=== PATIENT | female | born 1975 | race Caucasian/White ===

== ENCOUNTER 2017-05-09 08:41 | Emergency (ER) | payer OTHER ==
--- NOTE | 2017-05-09 12:20 | DIAGNOSTIC IMAGING REPORT ---
PROCEDURE: CT ABDOMEN/PELVIS W/O CONTRAST INDICATION: ABDOMINAL PAIN TECHNIQUE: Noncontrast axial images were obtained of the entire abdomen and pelvis with sagittal and coronal reformations. COMPARISON: Pelvic ultrasound 02/21/2016 FINDINGS: ABDOMEN: Lung base are clear. Normal heart size. Liver, gallbladder, pancreas, spleen and adrenal glands are normal. Bilateral perinephric edema with urinary calculi or hydronephrosis. Nonspecific bowel gas pattern. Normal abdominal aorta. PELVIS: Normal appendix. 2.5 cm left ovarian cyst. Uterus and bladder are normal. No mass or free fluid. No suspicious osseous lesions. IMPRESSION: 1. Bilateral perinephric edema. Consider pyelonephritis 2. 2.5 cm left ovarian cyst 3. Results discussed with Dr. Ortez All CT scans at this facility use dose modulation, iterative reconstruction, and/or weight-based dosing when appropriate to reduce radiation dose to as low as reasonably achievable.
--- NOTE | 2017-05-09 12:27 | ED ORDER SUMMARY ---
..... Patient: ELIA LONGORIA OrderSheet [facility] VisitID: [id number] [place] [address] 42y, F Registration Date/Time: 05/09/2017 ORDER SHEET Weight: 90.7 kg (stated) Allergies: No Known Drug Allergy GENERAL ORDERS: CBC w Diff Urgent (08:54 05/09/2017 MWinterer R.N. per protocol) (8:55 KWilliams R.N.) CMP Urgent (08:54 05/09/2017 MWinterer R.N. per protocol) (8:55 KWilliams R.N.) UA-Culture if indicated Urgent (08:54 05/09/2017 MWinterer R.N. per protocol) (8:55 KWilliams R.N.) Lipase Urgent (08:54 05/09/2017 MWinterer R.N. per protocol) (8:55 KWilliams R.N.) Urine Urgent (08:54 05/09/2017 MWinterer R.N. per protocol) (8:55 KWilliams R.N.) Amylase Urgent (08:55 05/09/2017 MWinterer R.N. per protocol) (8:55 KWilliams R.N.) CT Abd/Pel w Cont (No) (N/A) Urgent (09:16 05/09/2017 Israel Vargas) (Ack 9:24 Donny) (Cancelled: Duplicate Order9:56 Israel Vargas) CT Abd/Pel wo Cont Urgent (09:57 05/09/2017 Israel Vargas) (Ack 10:04 Donny) (11:28 OHefrem) MEDICATION ORDERS: Phenergan IV 25 mg (HIGH ALERT MEDICATION, NOW) (10:38 05/09/2017 Israel Vargas) (Ack 10:41 MWinterer R.N.) (10:49 MWinterer R.N.) IV FLUIDS: IV Saline Lock (08:54 05/09/2017 MWinterer R.N. per protocol) (8:54 MWinterer R.N.) Dilaudid IV 1 mg (HIGH ALERT MEDICATION, NOW) (09:16 05/09/2017 Israel Vargas) (Ack 9:21 MWinterer R.N.) (9:28 MWinterer R.N.) IV NS : initial bolus 1000 mL (1000 mL/hr), then none - for X1 (NOW) (09:57 05/09/2017 Israel Vargas) (Ack 9:58 MWinterer R.N.) (10:08 MWinterer R.N.) Ceftriaxone IV 1 gm/50mL (NOW) (10:03 05/09/2017 Israel Vargas) (10:09 MWinterer R.N.) ORDER SHEET NOTES: [Electronically signed by Frannie Magallanes R.N. (14:05 05/09/2017)] [Electronically signed by Peter Ortez Dr. (16:45 05/09/2017)] [Electronically locked/signed by Frannie Magallanes R.N. (14:05 05/09/2017)]
--- NOTE | 2017-05-09 12:27 | ED NURSING NOTES ---
Clinical Report - Nurses [facility] [place] [address] 05/09/2017 8:42 Patient: ELIA LONGORIA TRIAGE Acuity: LEVEL 3. Chief Complaint: ABDOMINAL PAIN. Alert. No acute distress. SEPSIS SCREEN: Sepsis Screen. Negative (no infection suspected/documented). --08:52 Frannie Magallanes R.N. 08:44 05/09/17. BP: 144/95. HR: 81. RR: 20. O2 saturation: 99%. Temp: 97.2 F (oral). Pain level now: 07/18. --08:52 Frannie Magallanes R.N. Weight: 90.7 kg stated. Height/Length: 69 inches Per Patient. BMI: 29.5. --08:48 Frannie Magallanes R.N. Medications Cipro Oral. --08:49 Frannie Magallanes R.N. Medication/allergy information source: the patient. --08:52 Frannie Magallanes R.N. Allergies No Known Drug Allergy. --08:49 Frannie Magallanes R.N. History Arrived by private vehicle. Historian: patient. Accompanied by spouse. Primary physician ([place]). This started yesterday. Describes the quality as "pain". Relates location as generalized across abdomen. ( Pt states she is prone to UTIs and yesterday she diagnosed herself with a UTI and took cipro that she has prescribed to her. This am she awoke with abdominal pain.). Reports last BM was this am. No nausea, vomiting, diarrhea or constipation. Last oral intake by patient was this morning. It is described as radiating to the low back. Treatment TRADE SHOW SPECIALIST: None. PAST MEDICAL HX: Last normal menstrual period was 2 weeks ago- partner had vasectomy. Sexual history - sexually active. Sexual partner has had a vasectomy. SOCIAL HX: Current every day light tobacco smoker (cigarette)- less than 1/2 a pack per day. Occasional alcohol use. No drug use. FALL RISK ASSESSMENT: Fall risk assessment completed. No fall risk identified. NUTRITIONAL RISK ASSESSMENT: The nutritional risk assessment revealed no deficiencies. FUNCTIONAL ASSESSMENT: Functional assessment: no impairments noted. LEARNING NEEDS ASSESSMENT: The learning needs assessment revealed no barriers. SKIN INTEGRITY ASSESSMENT: Skin integrity risk assessment completed. No skin integrity risk identified. --08:52 Frannie Magallanes R.N. ADDITIONAL SURGERIES: . --08:50 Frannie Magallanes R.N. Assessment GENERAL / NEURO / PSYCH: Alert. Oriented X 4. Appears in no acute distress. Ilya Coma Scale: 15- eyes open spontaneously (4); best verbal response- oriented x 4 (5); best motor response- obeys commands (6). Patient appears calm and cooperative. RESPIRATORY: Respirations not labored. CVS: Capillary refill less than 2 seconds. GI / : Abdomen soft. SKIN: Mucous membranes are pink. Skin is warm and dry. --08:52 Frannie Magallanes R.N. Interventions ID band on patient. To treatment room. Ambulatory. --08:52 Frannie Magallanes R.N. NURSING PROGRESS NOTES 08:53 05/09/2017 Site #1 started via IV in the left hand with an 18g angiocath, with aseptic technique and good blood return; one attempt. Blood drawn: rainbow set. Labeled in the presence of the patient and sent to the lab. Saline lock flushed with 10 mL saline. --08:53 Frannie Magallanes R.N. 08:53 05/09/17. Patient gowned. Head of bed elevated. Reassurance given. Two patient identifiers checked. Call light placed in reach. Side rails up x 1. Bed placed in lowest position. Brakes of bed on. Patient ready for evaluation- chart flagged and ED physician notified. --08:53 Frannie Magallanes R.N. 08:53 05/09/17. Checked patient name and birthdate: patient confirmed. Instructions provided to collect clean catch urine and patient verbalized understanding. Clean catch urine collected with return of yellow-colored cloudy urine; sample sent to lab for urinalysis. Specimen labeled in the presence of the patient. --08:54 Frannie Magallanes R.N. 09:28 05/09/2017 Dilaudid (HYDROmorphone HCl PF) IVP 1 mg given over 1 minute(s) via site #1. Allergies verified, confirmed 5 rights and sedative warning given to the patient. IV patency established. IV site checked: no pain, redness, or swelling. IV flushed thoroughly pre- and post-medication administration. IVP given by RN. --09:28 Frannie Magallanes R.N. 09:29 05/09/17. Pulse oximeter placed on patient; monitor alarms on. --09:29 Frannie Magallanes R.N. 09:55 05/09/17. Reassessment after medication administered. She reports no complaints, she is calm and resting quietly and she has had no adverse reaction. Overall patient status is improved- she states feels better. GI / : Denies abdominal pain. --09:55 Frannie Magallanes R.N. 10:08 05/09/2017 Started bag #1 1000 mL IV Fluids IV NS (Saline); at 1000 mL/hr over 1 hour(s) via site #1. Allergies verified and confirmed 5 rights. IV patency established. IV site checked: no pain, redness, or swelling. IV flushed thoroughly pre- and post-medication administration. --10:09 Frannie Magallanes R.N. 10:09 05/09/2017 Started 1 gm of Ceftriaxone IVPB in bag #1 50 mL; at 150 mL/hr over 20 minute(s) via site #1 via IV pump. Allergies verified and confirmed 5 rights. IV patency established. IV site checked: no pain, redness, or swelling. IV flushed thoroughly pre- and post-medication administration. --10:09 Frannie Magallanes R.N. 10:30 05/09/2017 Ceftriaxone IVPB Discontinued: bag #1 infused. Total amount infused: 50 mL. IV patency established. IV site checked: no pain, redness, or swelling. IV flushed thoroughly. --10:48 Frannie Magallanes R.N. 10:38 05/09/2017 IV Fluids IV NS Discontinued: bag #1 infused. Total amount infused: 1000 mL. --10:48 Frannie Magallanes R.N. 10:49 05/09/2017 PHENERGAN (Promethazine HCl) IVP 25 mg given over 2 minute(s) via site #1. Allergies verified and confirmed 5 rights. IV patency established. IV site checked: no pain, redness, or swelling. IV flushed thoroughly pre- and post-medication administration. IVP given by RN. --10:49 Frannie Magallanes R.N. DISPOSITION / DISCHARGE Departure time: 12:40 May 09 2017. Condition at departure: improved and stable. No learning barriers present. Discharge instructions provided and reviewed with the patient. Reviewed medication(s) side effects, precautions, dosing and course information. Prescription(s) given to the patient. Patient verbalized understanding. Written instructions provided in [place]. The patient was discharged by the physician. She was discharged home and accompanied by spouse. She left the Emergency Department ambulatory and via private vehicle. Spouse driving. --14:05 Frannie Magallanes R.N. 14:01 05/09/17. BP: 123/80. HR: 72. RR: 18. O2 saturation: 100%. Pain level now: 0/10. --14:05 Frannie Magallanes R.N. 12:40 05/09/2017 Site #1 removed upon discharge. Catheter intact. Manual pressure and bandage applied. --14:05 Frannie Magallanes R.N. Locked/Released at 05/09/2017 14:05 by Frannie Magallanes R.N.
--- NOTE | 2017-05-09 12:27 | ED ORDER SUMMARY ---
..... Patient: ELIA LONGORIA OrderSheet [facility] VisitID: [id number] [place] [address] 42y, F Registration Date/Time: 05/09/2017 ORDER SHEET Weight: 90.7 kg (stated) Allergies: No Known Drug Allergy GENERAL ORDERS: CBC w Diff Urgent (08:54 05/09/2017 MWinterer R.N. per protocol) (8:55 KWilliams R.N.) CMP Urgent (08:54 05/09/2017 MWinterer R.N. per protocol) (8:55 KWilliams R.N.) UA-Culture if indicated Urgent (08:54 05/09/2017 MWinterer R.N. per protocol) (8:55 KWilliams R.N.) Lipase Urgent (08:54 05/09/2017 MWinterer R.N. per protocol) (8:55 KWilliams R.N.) Urine Urgent (08:54 05/09/2017 MWinterer R.N. per protocol) (8:55 KWilliams R.N.) Amylase Urgent (08:55 05/09/2017 MWinterer R.N. per protocol) (8:55 KWilliams R.N.) CT Abd/Pel w Cont (No) (N/A) Urgent (09:16 05/09/2017 Israel Vargas) (Ack 9:24 Donny) (Cancelled: Duplicate Order9:56 Israel Vargas) CT Abd/Pel wo Cont Urgent (09:57 05/09/2017 Israel Vargas) (Ack 10:04 Donny) (11:28 OHefrem) MEDICATION ORDERS: Phenergan IV 25 mg (HIGH ALERT MEDICATION, NOW) (10:38 05/09/2017 Israel Vargas) (Ack 10:41 MWinterer R.N.) (10:49 MWinterer R.N.) IV FLUIDS: IV Saline Lock (08:54 05/09/2017 MWinterer R.N. per protocol) (8:54 MWinterer R.N.) Dilaudid IV 1 mg (HIGH ALERT MEDICATION, NOW) (09:16 05/09/2017 Israel Vargas) (Ack 9:21 MWinterer R.N.) (9:28 MWinterer R.N.) IV NS : initial bolus 1000 mL (1000 mL/hr), then none - for X1 (NOW) (09:57 05/09/2017 Israel Vargas) (Ack 9:58 MWinterer R.N.) (10:08 MWinterer R.N.) Ceftriaxone IV 1 gm/50mL (NOW) (10:03 05/09/2017 Israel Vargas) (10:09 MWinterer R.N.) ORDER SHEET NOTES: [Electronically signed by Frannie Magallanes R.N. (14:05 05/09/2017)] [Electronically signed by Peter Ortez Dr. (16:45 05/09/2017)] [Electronically locked/signed by Frannie Magallanes R.N. (14:05 05/09/2017)]
--- NOTE | 2017-05-09 12:27 | ED CLINICAL REPORT ---
Clinical Report - Physicians/Mid Levels [facility] [address] [place] [address] 05/09/2017 8:42 Patient: ELIA LONGORIA Time Seen: 0855; initial patient contact. Arrived- By private vehicle. HISTORY OF PRESENT ILLNESS Chief Complaint: ABDOMINAL PAIN. At its maximum, severity described as severe. When seen in the E.D., severity described as severe. Modifying factors. Not worsened by anything. Not relieved by anything. It is described as sharp and it is described as located in the periumbilical area and radiating to the low back. This started today and is still present and worsening. It was abrupt in onset and has been constant but is not gone now. No nausea, loss of appetite, vomiting or diarrhea. (states she felt a bad UTI coming on yesterday.). No recent travel. Similar symptoms previously: None. Recent medical care: Not recently seen/assessed. REVIEW OF SYSTEMS No black stools, hematemesis, bloody stools or fever. All systems otherwise negative, except as recorded above. PAST HISTORY See nurses notes. Medications: Cipro Oral. Allergies: No Known Drug Allergy. SOCIAL HISTORY Never smoker. No alcohol use or drug use. No recent travel. Is a local resident. ADDITIONAL NOTES The nursing notes have been reviewed. PHYSICAL EXAM Vital Signs: 05/09/2017 08:44 BP: 144/95. HR: 81. RR: 20. O2 saturation: 99%. Temp: 97.2 F. Pain level now: 9/10. Oxygen saturation normal. Appearance: Alert. Oriented X3. Patient in mild distress. (non-toxic). Neck: Normal inspection. Neck supple. No meningeal signs. CVS: Normal heart rate and rhythm. Heart sounds normal. Pulses normal. Respiratory: No respiratory distress. Breath sounds normal. Chest nontender. Abdomen: Soft and nontender. Bowel sounds normal. Skin: Skin warm and dry. Normal skin color. No rash. Normal skin turgor. Extremities: Extremities exhibit normal ROM. No lower extremity edema. Neuro: Oriented X 3. No motor deficit. No sensory deficit. LABS, X-RAYS, AND EKG Abdominal CT: PROCEDURE: CT ABDOMEN/PELVIS W/O CONTRAST INDICATION: ABDOMINAL PAIN TECHNIQUE: Noncontrast axial images were obtained of the entire abdomen and pelvis with sagittal and coronal reformations. COMPARISON: Pelvic ultrasound 02/21/2016 FINDINGS: ABDOMEN: Lung base are clear. Normal heart size. Liver, gallbladder, pancreas, spleen and adrenal glands are normal. Bilateral perinephric edema with urinary calculi or hydronephrosis. Nonspecific bowel gas pattern. Normal abdominal aorta. PELVIS: Normal appendix. 2.5 cm left ovarian cyst. Uterus and bladder are normal. No mass or free fluid. No suspicious osseous lesions. IMPRESSION: 1. Bilateral perinephric edema. Consider pyelonephritis 2. 2.5 cm left ovarian cyst. Laboratory Tests: UA-Culture if indicated: (PATO: 05/09/2017 08:48) ( [facility] 05/09/2017 09:37) Final results Test Result Flag Units (Reference) URINE COLOR YELLOW URINE APPEARANCE CLEAR URINE GLUCOSE NEGATIVE (NEGATIVE) URINE BILIRUBIN NEGATIVE (NEGATIVE) URINE KETONE NEGATIVE (NEGATIVE) URINE SPECIFIC GRAVITY <= 1.005 L (1.010-1.030) URINE PH 6.0 (5.0-8.0) URINE PROTEIN 1+ (NEGATIVE) URINE UROBILINOGEN 0.2 EU/dL (0.2-1.0) URINE NITRITE NEGATIVE (NEGATIVE) URINE BLOOD 3+ (NEGATIVE) URINE LEUK ESTERASE POSITIVE (NEGATIVE) URINE RBC 5-10 rbc/hpf (0-1) URINE WBC 3-5 wbc/hpf (0-1) URINE EPITHELIAL CELLS 1-3 EPI/hpf (0-5) URINE BACTERIA FEW (1+) (NONE SEEN) URINE COMMENT CULTURE INDICATED 1+ MUCOUSURINE CULTURES ARE SET-UP BASED ON THE FOLLOWING CRITERIA:POSITIVE NITRITEPOSITIVE LEUKOCYTE ESTERASEGREATER THAN 10 WHITE BLOOD CELLSMODERATE (2+) OR GREATER BACTERIA Urine: (PATO: 05/09/2017 08:48) ( [facility] 05/09/2017 09:10) Final results Test Result Flag Units (Reference) URINE NEGATIVE CBC w Diff: (PATO: 05/09/2017 08:49) ( [facility] 05/09/2017 09:20) Final results Test Result Flag Units (Reference) WHITE BLOOD COUNT 14.3 H K/uL (4.5-11.5) RED BLOOD COUNT 4.49 M/uL (4.00-5.20) HEMOGLOBIN 13.8 gm/dL (12.0-16.0) HEMATOCRIT 41.2 % (36.0-46.0) MEAN CELL VOLUME 92 fL (80-100) MEAN CORPUSCULAR HGB 31 pg (26-34) MEAN CORPUSCULAR HGB CONC 33 g/dL (31-37) RED CELL DISTRIBUTION WIDTH 12.8 % (11.6-14.8) PLATELET COUNT 216 K/uL (150-400) NEUTROPHIL % 77.2 H % (50-75) LYMPH % 14.0 L % (25-40) MONO % 7.5 % (3-14) EOSINOPHIL % 1.3 % (0-4) BASOPHIL % 0 % (0-2) Amylase: (PATO: 05/09/2017 08:49) ( [facility] 05/09/2017 09:32) Final results Test Result Flag Units (Reference) AMYLASE 74 U/L (25-115) CMP: (PATO: 05/09/2017 08:49) ( [facility] 05/09/2017 09:46) Final results Test Result Flag Units (Reference) GLUCOSE 96 mg/dL (70-110) BUN 25 H mg/dL (7-18) CREATININE 1.8 H mg/dL (0.6-1.3) Estimated GFR 32.79 mL/min Estimated GFR- 39.75 mL/min Note: Persistent reduction over 3 months in eGFR<60 mL/min/1.73 m2 defines CKD. Patients with eGFR values>=60 mL/min/1.73 m2 may also have CKD if evidence ofpersistent proteinuria. Additional information may be foundat www.kidney.org. SODIUM 139 mmol/L (136-145) POTASSIUM 4.2 mmol/L (3.5-5.1) CHLORIDE 104 mmol/L (98-107) CARBON DIOXIDE 21 mmol/L (21-32) CALCIUM 8.9 mg/dL (8.5-10.1) TOTAL PROTEIN 7.3 g/dL (6.4-8.2) ALBUMIN 3.7 g/dL (3.3-5.0) BILIRUBIN, TOTAL 0.4 mg/dL (0.0-1.0) ALKALINE PHOSPHATASE 71 U/L (46-116) AST (SGOT) 24 U/L (15-37) ALT (SGPT) 27 U/L (12-78) LIPASE 112 U/L (73-393) . PROGRESS AND PROCEDURES Course of Care: the patient is a pleasant 42-year-old female with past medical history significant for urinary tract infection presented for evaluation of abdominal pain that is. Umbilical and area radiating to the back. The patient is nontoxic in appearance however is in a mild amount of discomfort. Pain medication has been ordered. Patient is agreeable to the treatment plan. Differential diagnosis includes urinary tract infection versus acute appendicitis versus renal colic. The patient's workup was remarkable for the findings above. Patient with CT scan evidence and UA evidence of urinary tract infection. Because the patient's symptom locationand CT scans, pyelonephritisis the likely diagnosis. No signs of acute appendicitis. Patient's repeat abdominal exam continues to be benign. First dose of her antibiotics provided here in the emergency department. I discussion with the patient in regards to her workup here in emergency department triggering diagnosis, home care, follow-up, and return precautions. pior to patient departure from the emergency department she is noted to be Resting in bed and in no acute distress.with significant improved symptoms after her visit. Disposition: Discharged. Condition: good. CLINICAL IMPRESSION Acute periumbilical abdominal pain of unknown cause. Acute pyelonephritis (bilateral). acute kidney injury. INSTRUCTIONS (keep well hydrated. avoid nonsteroidal anti-inflammatory medications such as motrin, aleve, advil, aspirin, etc.). Warnings: Further evaluation is necessary in order to recheck abnormal lab (abnormal creatinine of 1.8). It is very important to follow up with a physician. GENERAL WARNINGS: Return or contact your physician immediately if your condition worsens or changes unexpectedly, if not improving as expected, or if other problems arise. SPECIFICALLY, return if you develop pain, fever, vomiting, the inability to keep fluids down, blood in vomitus, blood in diarrhea, fainting or lightheadedness. Your Current Medications: CONTINUE TAKING THE FOLLOWING MEDICATIONS: Cipro Oral. Prescription Medications: Cephalexin 500 mg: take 1 capsule orally every 8 hours for 10 days. No refill. (disp 30 caps) Percocet 5 mg/325 mg: take 1 tablet orally every 6 hours as needed for pain. Dispense twenty (20). No refill. Substitution is permissible. Follow-up: Return to the emergency department as needed. Follow up with your doctor in three days. Reason for referral: recheck today's concerns. Summary of care provided to patient via paper. Screening today revealed the patient's blood pressure to be in the normal range. The patient should follow up with a primary care provider for blood pressure management. Understanding of the discharge instructions verbalized by patient. (Electronically signed by Peter Ortez Dr. 05/09/2017 16:45)
--- NOTE | 2017-05-09 12:27 | ED CLINICAL REPORT ---
Clinical Report - Physicians/Mid Levels [facility] [address] [place] [address] 05/09/2017 8:42 Patient: ELIA LONGORIA Time Seen: 0855; initial patient contact. Arrived- By private vehicle. HISTORY OF PRESENT ILLNESS Chief Complaint: ABDOMINAL PAIN. At its maximum, severity described as severe. When seen in the E.D., severity described as severe. Modifying factors. Not worsened by anything. Not relieved by anything. It is described as sharp and it is described as located in the periumbilical area and radiating to the low back. This started today and is still present and worsening. It was abrupt in onset and has been constant but is not gone now. No nausea, loss of appetite, vomiting or diarrhea. (states she felt a bad UTI coming on yesterday.). No recent travel. Similar symptoms previously: None. Recent medical care: Not recently seen/assessed. REVIEW OF SYSTEMS No black stools, hematemesis, bloody stools or fever. All systems otherwise negative, except as recorded above. PAST HISTORY See nurses notes. Medications: Cipro Oral. Allergies: No Known Drug Allergy. SOCIAL HISTORY Never smoker. No alcohol use or drug use. No recent travel. Is a local resident. ADDITIONAL NOTES The nursing notes have been reviewed. PHYSICAL EXAM Vital Signs: 05/09/2017 08:44 BP: 144/95. HR: 81. RR: 20. O2 saturation: 99%. Temp: 97.2 F. Pain level now: 9/10. Oxygen saturation normal. Appearance: Alert. Oriented X3. Patient in mild distress. (non-toxic). Neck: Normal inspection. Neck supple. No meningeal signs. CVS: Normal heart rate and rhythm. Heart sounds normal. Pulses normal. Respiratory: No respiratory distress. Breath sounds normal. Chest nontender. Abdomen: Soft and nontender. Bowel sounds normal. Skin: Skin warm and dry. Normal skin color. No rash. Normal skin turgor. Extremities: Extremities exhibit normal ROM. No lower extremity edema. Neuro: Oriented X 3. No motor deficit. No sensory deficit. LABS, X-RAYS, AND EKG Abdominal CT: PROCEDURE: CT ABDOMEN/PELVIS W/O CONTRAST INDICATION: ABDOMINAL PAIN TECHNIQUE: Noncontrast axial images were obtained of the entire abdomen and pelvis with sagittal and coronal reformations. COMPARISON: Pelvic ultrasound 02/21/2016 FINDINGS: ABDOMEN: Lung base are clear. Normal heart size. Liver, gallbladder, pancreas, spleen and adrenal glands are normal. Bilateral perinephric edema with urinary calculi or hydronephrosis. Nonspecific bowel gas pattern. Normal abdominal aorta. PELVIS: Normal appendix. 2.5 cm left ovarian cyst. Uterus and bladder are normal. No mass or free fluid. No suspicious osseous lesions. IMPRESSION: 1. Bilateral perinephric edema. Consider pyelonephritis 2. 2.5 cm left ovarian cyst. Laboratory Tests: UA-Culture if indicated: (PATO: 05/09/2017 08:48) ( [facility] 05/09/2017 09:37) Final results Test Result Flag Units (Reference) URINE COLOR YELLOW URINE APPEARANCE CLEAR URINE GLUCOSE NEGATIVE (NEGATIVE) URINE BILIRUBIN NEGATIVE (NEGATIVE) URINE KETONE NEGATIVE (NEGATIVE) URINE SPECIFIC GRAVITY <= 1.005 L (1.010-1.030) URINE PH 6.0 (5.0-8.0) URINE PROTEIN 1+ (NEGATIVE) URINE UROBILINOGEN 0.2 EU/dL (0.2-1.0) URINE NITRITE NEGATIVE (NEGATIVE) URINE BLOOD 3+ (NEGATIVE) URINE LEUK ESTERASE POSITIVE (NEGATIVE) URINE RBC 5-10 rbc/hpf (0-1) URINE WBC 3-5 wbc/hpf (0-1) URINE EPITHELIAL CELLS 1-3 EPI/hpf (0-5) URINE BACTERIA FEW (1+) (NONE SEEN) URINE COMMENT CULTURE INDICATED 1+ MUCOUSURINE CULTURES ARE SET-UP BASED ON THE FOLLOWING CRITERIA:POSITIVE NITRITEPOSITIVE LEUKOCYTE ESTERASEGREATER THAN 10 WHITE BLOOD CELLSMODERATE (2+) OR GREATER BACTERIA Urine: (PATO: 05/09/2017 08:48) ( [facility] 05[facility] 09:10) Final results Test Result Flag Units (Reference) URINE NEGATIVE CBC w Diff: (PATO: 05/09/2017 08:49) ( [facility] 05/09/2017 09:20) Final results Test Result Flag Units (Reference) WHITE BLOOD COUNT 14.3 H K/uL (4.5-11.5) RED BLOOD COUNT 4.49 M/uL (4.00-5.20) HEMOGLOBIN 13.8 gm/dL (12.0-16.0) HEMATOCRIT 41.2 % (36.0-46.0) MEAN CELL VOLUME 92 fL (80-100) MEAN CORPUSCULAR HGB 31 pg (26-34) MEAN CORPUSCULAR HGB CONC 33 g/dL (31-37) RED CELL DISTRIBUTION WIDTH 12.8 % (11.6-14.8) PLATELET COUNT 216 K/uL (150-400) NEUTROPHIL % 77.2 H % (50-75) LYMPH % 14.0 L % (25-40) MONO % 7.5 % (3-14) EOSINOPHIL % 1.3 % (0-4) BASOPHIL % 0 % (0-2) Amylase: (PATO: 05/09/2017 08:49) ( [facility] 05/09/2017 09:32) Final results Test Result Flag Units (Reference) AMYLASE 74 U/L (25-115) CMP: (PATO: 05/09/2017 08:49) ( [facility] 05/09/2017 09:46) Final results Test Result Flag Units (Reference) GLUCOSE 96 mg/dL (70-110) BUN 25 H mg/dL (7-18) CREATININE 1.8 H mg/dL (0.6-1.3) Estimated GFR 32.79 mL/min Estimated GFR- 39.75 mL/min Note: Persistent reduction over 3 months in eGFR<60 mL/min/1.73 m2 defines CKD. Patients with eGFR values>=60 mL/min/1.73 m2 may also have CKD if evidence ofpersistent proteinuria. Additional information may be foundat [email or web address].org. SODIUM 139 mmol/L (136-145) POTASSIUM 4.2 mmol/L (3.5-5.1) CHLORIDE 104 mmol/L (98-107) CARBON DIOXIDE 21 mmol/L (21-32) CALCIUM 8.9 mg/dL (8.5-10.1) TOTAL PROTEIN 7.3 g/dL (6.4-8.2) ALBUMIN 3.7 g/dL (3.3-5.0) BILIRUBIN, TOTAL 0.4 mg/dL (0.0-1.0) ALKALINE PHOSPHATASE 71 U/L (46-116) AST (SGOT) 24 U/L (15-37) ALT (SGPT) 27 U/L (12-78) LIPASE 112 U/L (73-393) . PROGRESS AND PROCEDURES Course of Care: the patient is a pleasant 42-year-old female with past medical history significant for urinary tract infection presented for evaluation of abdominal pain that is. Umbilical and area radiating to the back. The patient is nontoxic in appearance however is in a mild amount of discomfort. Pain medication has been ordered. Patient is agreeable to the treatment plan. Differential diagnosis includes urinary tract infection versus acute appendicitis versus renal colic. The patient's workup was remarkable for the findings above. Patient with CT scan evidence and UA evidence of urinary tract infection. Because the patient's symptom locationand CT scans, pyelonephritisis the likely diagnosis. No signs of acute appendicitis. Patient's repeat abdominal exam continues to be benign. First dose of her antibiotics provided here in the emergency department. I discussion with the patient in regards to her workup here in emergency department triggering diagnosis, home care, follow-up, and return precautions. pior to patient departure from the emergency department she is noted to be Resting in bed and in no acute distress.with significant improved symptoms after her visit. Disposition: Discharged. Condition: good. CLINICAL IMPRESSION Acute periumbilical abdominal pain of unknown cause. Acute pyelonephritis (bilateral). acute kidney injury. INSTRUCTIONS (keep well hydrated. avoid nonsteroidal anti-inflammatory medications such as motrin, aleve, advil, aspirin, etc.). Warnings: Further evaluation is necessary in order to recheck abnormal lab (abnormal creatinine of 1.8). It is very important to follow up with a physician. GENERAL WARNINGS: Return or contact your physician immediately if your condition worsens or changes unexpectedly, if not improving as expected, or if other problems arise. SPECIFICALLY, return if you develop pain, fever, vomiting, the inability to keep fluids down, blood in vomitus, blood in diarrhea, fainting or lightheadedness. Your Current Medications: CONTINUE TAKING THE FOLLOWING MEDICATIONS: Cipro Oral. Prescription Medications: Cephalexin 500 mg: take 1 capsule orally every 8 hours for 10 days. No refill. (disp 30 caps) Percocet 5 mg/325 mg: take 1 tablet orally every 6 hours as needed for pain. Dispense twenty (20). No refill. Substitution is permissible. Follow-up: Return to the emergency department as needed. Follow up with your doctor in three days. Reason for referral: recheck today's concerns. Summary of care provided to patient via paper. Screening today revealed the patient's blood pressure to be in the normal range. The patient should follow up with a primary care provider for blood pressure management. Understanding of the discharge instructions verbalized by patient. (Electronically signed by Peter Ortez Dr. 05/09/2017 16:45)
--- NOTE | 2017-05-09 16:45 | ED MAR SUMMARY ---
..... Medication Administration Record [facility] [address] [place] [address] Patient: ELIA LONGORIA Visit ID: [id number] [id number], F Weight: 90.7 kg Height/Length: 69 in BMI: 29.5 ALLERGIES: No Known Drug Allergy Given 09:28 05/09/2017 Frannie Magallanes R.N. Medication Administered: DILAUDID [IVP] (HYDROMORPHONE HCL PF), Dose: 1 mg IVP over 1 minute(s), Site: #1 left hand. Medication Ordered: Dilaudid IV 1 mg (HIGH ALERT MEDICATION, NOW). Start 10:08 05/09/2017 Frannie Magallanes R.N., Stop 10:38 05/09/2017 Frannie Magallanes R.N. Medication Administered: IV NS (SALINE), Dose: IV Fluids over 1 hour(s), Rate: 1000 mL/hr, Dispensed: 1000 mL bag, Site: #1 left hand. Medication Ordered: IV NS : initial bolus 1000 mL (1000 mL/hr), then none - for X1 (NOW). Start 10:09 05/09/2017 Frannie Magallanes R.N., Stop 10:30 05/09/2017 Frannie Magallanes R.N. Medication Administered: CEFTRIAXONE [IVPB], Dose: 1 gm IVPB over 20 minute(s), Rate: 150 mL/hr, Dispensed: 50 mL bag, Site: #1 left hand. Medication Ordered: Ceftriaxone IV 1 gm/50mL (NOW). Given 10:49 05/09/2017 Frannie Magallanes R.N. Medication Administered: PHENERGAN [IVP] (PROMETHAZINE HCL), Dose: 25 mg IVP over 2 minute(s), Site: #1 left hand. Medication Ordered: Phenergan IV 25 mg (HIGH ALERT MEDICATION, NOW).
--- NOTE | 2017-05-09 16:45 | ED DISCHARGE INSTRUCTIONS ---
Patient: ELIA LONGORIA General Instructions [facility] VisitID: [id number] [place] [address] 42y, F Registration Date/Time: 05/09/2017 Acute periumbilical abdominal pain of unknown cause. Acute pyelonephritis (bilateral). acute kidney injury. INSTRUCTIONS (keep well hydrated. avoid nonsteroidal anti-inflammatory medications such as motrin, aleve, advil, aspirin, etc.). Warnings: Further evaluation is necessary in order to recheck abnormal lab (abnormal creatinine of 1.8). It is very important to follow up with a physician. GENERAL WARNINGS: Return or contact your physician immediately if your condition worsens or changes unexpectedly, if not improving as expected, or if other problems arise. SPECIFICALLY, return if you develop pain, fever, vomiting, the inability to keep fluids down, blood in vomitus, blood in diarrhea, fainting or lightheadedness. Your Current Medications: CONTINUE TAKING THE FOLLOWING MEDICATIONS: Cipro Oral. Prescription Medications: Cephalexin 500 mg: take 1 capsule orally every 8 hours for 10 days. No refill. (disp 30 caps) Percocet 5 mg/325 mg: take 1 tablet orally every 6 hours as needed for pain. Dispense twenty (20). No refill. Substitution is permissible. Follow-up: Return to the emergency department as needed. Follow up with your doctor in three days. Reason for referral: recheck today's concerns. Summary of care provided to patient via paper. Screening today revealed the patient's blood pressure to be in the normal range. The patient should follow up with a primary care provider for blood pressure management. Understanding of the discharge instructions verbalized by patient. ADDITIONAL INFORMATION Abdominal Pain, Unknown Cause (Female) The exact cause of your abdominal (stomach) pain is not certain. This does not mean that this is something to worry about, or the right tests were not done. Everyone likes to know the exact cause of the problem, but sometimes with abdominal pain, there is no clear-cut cause, and this could be a good thing. The good news is that your symptoms can be treated, and you will feel better. Your condition does not seem serious now; however, sometimes the signs of a serious problem may take more time to appear. For this reason,it is important for you to watch for any new symptoms, problems,or worsening of your condition. Over the next few days, the abdominal pain may come and go, or be continuous. Other common symptoms can include nausea and vomiting. Sometimes it can be difficult to tell if you feel nauseous, you may just feel bad and not associate that feeling with nausea. Constipation, diarrhea, and a fever may go along with the pain. The pain may continue even if treated correctly over the following days. Depending on how things go, sometimes the cause can become clear and may require further or different treatment. Additional evaluations, medications, or tests may be needed. Home care Your health care provider may prescribe medications for pain, symptoms, or an infection. Follow the health care provider's instructions for taking these medications. General care Rest until your next exam. No strenuous activities. Try to find positions that ease discomfort. A small pillow placed on the abdomen may help relieve pain. Something warm on your abdomen (such as a heating pad) may help, but be careful not to burn yourself. Diet Do not force yourself to eat, especially if having cramps, vomiting, or diarrhea. Water is important so you do not get dehydrated. Soup may also be good. Sports drinks may also help, especially if they are not too acidic. Make sure you don't drink sugary drinks as this can make things worse. Take liquids in small amounts. Do not guzzle them. Caffeine sometimes makes the pain and cramping worse. Avoid dairy products if you have vomiting or diarrhea. Don't eat large amounts at a time. Wait a few minutes between bites. Eat a diet low in fiber (called a low-residue diet). Foods allowed include refined breads, white rice, fruit and vegetable juices without pulp, tender meats. These foods will pass more easily through the intestine. Avoid whole-grain foods, whole fruits and vegetables, meats, seeds and nuts, fried or fatty foods, dairy, alcohol and spicy foods until your symptoms go away. Follow-up care Follow up with your health care provider as instructed, or if your pain does not begin to improve in the next 24 hours. When to seek medical care Seek prompt medical care if any of the following occur: Pain gets worse or moves to the right lower abdomen New or worsening vomiting or diarrhea Swelling of the abdomen Unable to pass stool for more than three days Fever of 100.4F (38C) or higher, or as directed by your healthcare provider. Blood in vomit or bowel movements (dark red or black color) Jaundice (yellow color of eyes and skin) Weakness, dizziness Chest, arm, back, neck or jaw pain Unexpected vaginal bleeding or missed period Call 911 Call emergency services if any of the following occur: Trouble breathing Confusion Fainting or loss of consciousness Rapid heart rate Seizure Kidney Infection [Adult, Female] An infection of the kidney is also called "pyelonephritis". It usually starts as a bladder infection ("cystitis") which spreads to the kidneys. Pyelonephritis is more serious than a bladder infection. It can cause severe illness if not treated properly. The usual symptoms include an aching pain in the back, side or lower abdomen. Other symptoms may include fever, chills, nausea, vomiting, an urge to urinate and a burning sensation when passing urine. Home Care: Stay home from work or school. Rest in bed until your fever breaks and you are feeling better. Drink lots of fluid (at least 6-8 glasses a day, unless you must restrict fluids for other medical reasons). This will force the medicine into your urinary system and flush the bacteria out of your body. Avoid sexual intercourse until you have finished all of your medicine and your symptoms have gone away. Avoid caffeine, alcohol and spicy foods which may irritate the kidney and bladder. You may use acetaminophen (Tylenol) or ibuprofen (Motrin, Advil) to control pain, unless another pain medicine was prescribed. [NOTE: If you have chronic liver or kidney disease or ever had a stomach ulcer or GI bleeding, talk with your doctor before using these medicines.] Follow Up with your doctor or as advised by our staff for a repeat urine test in 10 days. This will ensure that your infection is fully cleared. [NOTE: If you had an X-ray or CT scan, it will be reviewed by a specialist. You will be notified of any new findings that may affect your care.] Get Prompt Medical Attention if any of the following occur: Fever over 100.4F (38.0C) after 48 hours of treatment No improvement by the third day of treatment Increasing back or abdominal pain Repeated vomiting or inability to take oral medicine Weakness, dizziness or fainting Cephalexin Monohydrate Oral tablet What is this medicine? CEPHALEXIN (sef a BLAINE in) is a cephalosporin antibiotic. It is used to treat certain kinds of bacterial infections It will not work for colds, flu, or other viral infections. How should I use this medicine? Take this medicine by mouth with a full glass of water. Follow the directions on the prescription label. This medicine can be taken with or without food. Take your medicine at regular intervals. Do not take your medicine more often than directed. Take all of your medicine as directed even if you think you are better. Do not skip doses or stop your medicine early. Talk to your hospice plan administrator regarding the use of this medicine in children. While this drug may be prescribed for selected conditions, precautions do apply. What side effects may I notice from receiving this medicine? Side effects that you should report to your doctor or health animal caregiver as soon as possible: allergic reactions like skin rash, itching or hives, swelling of the face, lips, or tongue breathing problems pain or trouble passing urine redness, blistering, peeling or loosening of the skin, including inside the mouth severe or watery diarrhea unusually weak or tired yellowing of the eyes, skin Side effects that usually do not require medical attention (report to your doctor or health animal caregiver if they continue or are bothersome): gas or heartburn genital or anal irritation headache joint or muscle pain nausea, vomiting What may interact with this medicine? probenecid some other antibiotics What if I miss a dose? If you miss a dose, take it as soon as you can. If it is almost time for your next dose, take only that dose. Do not take double or extra doses. There should be at least 4 to 6 hours between doses. Where should I keep my medicine? Keep out of the reach of children. Store at room temperature between 59 and 86 degrees F (15 and 30 degrees C). Throw away any unused medicine after the expiration date. What should I tell my health care provider before I take this medicine? They need to know if you have any of these conditions: kidney disease stomach or intestine problems, especially colitis an unusual or allergic reaction to cephalexin, other cephalosporins, penicillins, other antibiotics, medicines, foods, dyes or preservatives or trying to get breast-feeding What should I watch for while using this medicine? Tell your doctor or health animal caregiver if your symptoms do not begin to improve in a few days. Do not treat diarrhea with over the counter products. Contact your doctor if you have diarrhea that lasts more than 2 days or if it is severe and watery. If you have diabetes, you may get a false-positive result for sugar in your urine. Check with your doctor or health animal caregiver. Oxycodone Hydrochloride, Acetaminophen Oral tablet What is this medicine? ACETAMINOPHEN; OXYCODONE (a set a HEMANT kari fen; ox i KOE done) is a pain reliever. It is used to treat mild to moderate pain. How should I use this medicine? Take this medicine by mouth with a full glass of water. Follow the directions on the prescription label. Take your medicine at regular intervals. Do not take your medicine more often than directed. Talk to your hospice plan administrator regarding the use of this medicine in children. Special care may be needed. Patients over 65 years old may have a stronger reaction and need a smaller dose. What side effects may I notice from receiving this medicine? Side effects that you should report to your doctor or health animal caregiver as soon as possible: allergic reactions like skin rash, itching or hives, swelling of the face, lips, or tongue breathing difficulties, wheezing confusion light headedness or fainting spells severe stomach pain yellowing of the skin or the whites of the eyes Side effects that usually do not require medical attention (report to your doctor or health animal caregiver if they continue or are bothersome): dizziness drowsiness nausea vomiting What may interact with this medicine? alcohol antihistamines barbiturates like amobarbital, butalbital, butabarbital, methohexital, pentobarbital, phenobarbital, thiopental, and secobarbital benztropine drugs for bladder problems like solifenacin, trospium, oxybutynin, tolterodine, hyoscyamine, and methscopolamine drugs for breathing problems like ipratropium and tiotropium drugs for certain stomach or intestine problems like propantheline, homatropine methylbromide, glycopyrrolate, atropine, belladonna, and dicyclomine general anesthetics like etomidate, ketamine, nitrous oxide, propofol, desflurane, enflurane, halothane, isoflurane, and sevoflurane medicines for depression, anxiety, or psychotic disturbances medicines for sleep muscle relaxants naltrexone narcotic medicines (opiates) for pain phenothiazines like perphenazine, thioridazine, chlorpromazine, mesoridazine, fluphenazine, prochlorperazine, promazine, and trifluoperazine scopolamine tramadol trihexyphenidyl What if I miss a dose? If you miss a dose, take it as soon as you can. If it is almost time for your next dose, take only that dose. Do not take double or extra doses. Where should I keep my medicine? Keep out of the reach of children. This medicine can be abused. Keep your medicine in a safe place to protect it from theft. Do not share this medicine with anyone. Selling or giving away this medicine is dangerous and against the law. Store at room temperature between 20 and 25 degrees C (68 and 77 degrees F). Keep container tightly closed. Protect from light. This medicine may cause accidental overdose and if it is taken by other adults, children, or pets. Flush any unused medicine down the toilet to reduce the chance of harm. Do not use the medicine after the expiration date. What should I tell my health care provider before I take this medicine? They need to know if you have any of these conditions: brain tumor Crohn's disease, inflammatory bowel disease, or ulcerative colitis drink more than 3 alcohol containing drinks per day drug abuse or addiction head injury heart or circulation problems kidney disease or problems going to the bathroom liver disease lung disease, asthma, or breathing problems an unusual or allergic reaction to acetaminophen, oxycodone, other opioid analgesics, other medicines, foods, dyes, or preservatives or trying to get breast-feeding What should I watch for while using this medicine? Tell your doctor or health animal caregiver if your pain does not go away, if it gets worse, or if you have new or a different type of pain. You may develop tolerance to the medicine. Tolerance means that you will need a higher dose of the medication for pain relief. Tolerance is normal and is expected if you take this medicine for a long time. Do not suddenly stop taking your medicine because you may develop a severe reaction. Your body becomes used to the medicine. This does NOT mean you are addicted. Addiction is a behavior related to getting and using a drug for a non-medical reason. If you have pain, you have a medical reason to take pain medicine. Your doctor will tell you how much medicine to take. If your doctor wants you to stop the medicine, the dose will be slowly lowered over time to avoid any side effects. You may get drowsy or dizzy. Do not drive, use machinery, or do anything that needs mental alertness until you know how this medicine affects you. Do not stand or sit up quickly, especially if you are an older patient. This reduces the risk of dizzy or fainting spells. Alcohol may interfere with the effect of this medicine. Avoid alcoholic drinks. There are different types of narcotic medicines (opiates) for pain. If you take more than one type at the same time, you may have more side effects. Give your health care provider a list of all medicines you use. Your doctor will tell you how much medicine to take. Do not take more medicine than directed. Call emergency for help if you have problems breathing. The medicine will cause constipation. Try to have a bowel movement at least every 2 to 3 days. If you do not have a bowel movement for 3 days, call your doctor or health animal caregiver. Do not take Tylenol (acetaminophen) or medicines that have acetaminophen with this medicine. Too much acetaminophen can be very dangerous. Many nonprescription medicines contain acetaminophen. Always read the labels carefully to avoid taking more acetaminophen. You have been given the following additional information: Abdominal Pain, Unknown Cause, (Female) Pyelonephritis, Female (Adult) Cephalexin Monohydrate Oral tablet Oxycodone Hydrochloride, Acetaminophen Oral tablet (Electronically signed by Peter Ortez Dr. 05/09/2017 16:45)
--- NOTE | 2017-05-09 16:45 | ED MED RECONCILIATION SUMMARY ---
Patient: ELIA LONGORIA Medication Reconciliation Report [facility] VisitID: [id number] [place] [address] 42y, F Registration Date/Time: 05/09/2017 Weight: 90.7 kg Height/Length: 69 in. BMI: 29.5 ALLERGIES: No Known Drug Allergy The patient's Home Medications are listed below: CONTINUE TAKING THE FOLLOWING MEDICATIONS: Cipro Oral The source(s) of the original Home Medication information: patient The following Medications were given to the patient in the Emergency Department: Dilaudid [IVP] IVP 1 mg, administered: 05/09/2017 9:28:00 AM IV NS IV Fluids bolus 0, then 1000 mL/hr, administered: 05/09/2017 10:08:00 AM Ceftriaxone [IVPB] IVPB bolus 0, then 1 gm 150 mL/hr, administered: 05/09/2017 10:09:00 AM PHENERGAN [IVP] IVP 25 mg, administered: 05/09/2017 10:49:00 AM The following Medications were prescribed to the patient: Cephalexin 500 mg: take 1 capsule orally every 8 hours for 10 days. No refill.(disp 30 caps) -- Peter Ortez Dr. Percocet 5 mg/325 mg: take 1 tablet orally every 6 hours as needed for pain. Dispense twenty (20). No refill. Substitution is permissible. -- Peter Ortez Dr.
--- NOTE | 2017-05-09 16:45 | ED MED RECONCILIATION SUMMARY ---
Patient: ELIA LONGORIA Medication Reconciliation Report [facility] VisitID: [id number] [place] [address] 42y, F Registration Date/Time: 05/09/2017 Weight: 90.7 kg Height/Length: 69 in. BMI: 29.5 ALLERGIES: No Known Drug Allergy The patient's Home Medications are listed below: CONTINUE TAKING THE FOLLOWING MEDICATIONS: Cipro Oral The source(s) of the original Home Medication information: patient The following Medications were given to the patient in the Emergency Department: Dilaudid [IVP] IVP 1 mg, administered: 05/09/2017 9:28:00 AM IV NS IV Fluids bolus 0, then 1000 mL/hr, administered: 05/09/2017 10:08:00 AM Ceftriaxone [IVPB] IVPB bolus 0, then 1 gm 150 mL/hr, administered: 05/09/2017 10:09:00 AM PHENERGAN [IVP] IVP 25 mg, administered: 05/09/2017 10:49:00 AM The following Medications were prescribed to the patient: Cephalexin 500 mg: take 1 capsule orally every 8 hours for 10 days. No refill.(disp 30 caps) -- Peter Ortez Dr. Percocet 5 mg/325 mg: take 1 tablet orally every 6 hours as needed for pain. Dispense twenty (20). No refill. Substitution is permissible. -- Peter Ortez Dr.
--- NOTE | 2017-05-09 16:45 | ED MAR SUMMARY ---
..... Medication Administration Record [facility] [address] [place] [address] Patient: ELIA LONGORIA Visit ID: [id number] 42y, F Weight: 90.7 kg Height/Length: 69 in BMI: 29.5 ALLERGIES: No Known Drug Allergy Given 09:28 05/09/2017 Frannie Magallanes R.N. Medication Administered: DILAUDID [IVP] (HYDROMORPHONE HCL PF), Dose: 1 mg IVP over 1 minute(s), Site: #1 left hand. Medication Ordered: Dilaudid IV 1 mg (HIGH ALERT MEDICATION, NOW). Start 10:08 05/09/2017 Frannie Magallanes R.N., Stop 10:38 05/09/2017 Frannie Magallanes R.N. Medication Administered: IV NS (SALINE), Dose: IV Fluids over 1 hour(s), Rate: 1000 mL/hr, Dispensed: 1000 mL bag, Site: #1 left hand. Medication Ordered: IV NS : initial bolus 1000 mL (1000 mL/hr), then none - for X1 (NOW). Start 10:09 05/09/2017 Frannie Magallanes R.N., Stop 10:30 05/09/2017 Frannie Magallanes R.N. Medication Administered: CEFTRIAXONE [IVPB], Dose: 1 gm IVPB over 20 minute(s), Rate: 150 mL/hr, Dispensed: 50 mL bag, Site: #1 left hand. Medication Ordered: Ceftriaxone IV 1 gm/50mL (NOW). Given 10:49 05/09/2017 Frannie Magallanes R.N. Medication Administered: PHENERGAN [IVP] (PROMETHAZINE HCL), Dose: 25 mg IVP over 2 minute(s), Site: #1 left hand. Medication Ordered: Phenergan IV 25 mg (HIGH ALERT MEDICATION, NOW).
== END 2017-05-09 12:40 | disposition home or self-care (01) ==
LOC: ED SRH 08:41
DX: R10.33 Periumbilical pain (principal); N10 Acute pyelonephritis; N17.9 Acute kidney failure, unspecified; F17.210 Nicotine dependence, cigarettes, uncomplicated
CPT/HCPCS: 90004; 90100; 90469; 92235; 92530; 93070; 95059